=== PATIENT | male | born 1955 ===

== ENCOUNTER 2024-01-28 11:39 | Inpatient (IN) | payer MEDICARE, SELFPAY ==
[2024-01-28] VITALS (20 sets, daily range): BP systolic 117–153; BP diastolic 51–70; PULSE 69–95; RESP 12–38; TEMP 37–38.7; O2SAT 91–100
--- NOTE | ~2024-01-28 | CT_ITS ---
EXAMINATION: CTA brain carotid DATE: 01/28/2024 13:40 INDICATION: Cerebrovascular accident. TECHNIQUE: Computed tomographic angiography (CTA) of the head was performed without and with 100 mL O mnipaque-350 intravenous contrast. CTA of the neck was performed with intravenous contrast. Automated exposure control and iterative reconstruction technique were employed. The dose-length product was 1 792.10 mGy-cm. Maximum intensity projection and volume rendered 3D-reconstructions were created by th e technologist on a separate workstation. COMPARISON: None. FINDINGS: HEAD CTA: There is a large old infarct involving the left frontotemporal parietal region, left insula , left basal ganglia, left internal capsule, and left thalamus. There is an old lacunar infarct in th e right caudate nucleus. There is no intracranial hemorrhage, acute infarction, or abnormal intracran ial mass lesion. The ventricles are normal in size. There is mucosal thickening in the paranasal sinu ses. There is thickening and sclerosis of the sherwood of right sphenoid sinus, consistent with chronic sinusitis. The mastoid air cells are normal. The orbits are normal. Left vertebral artery is dominant . There is associated stenosis of basilar artery or the posterior cerebral arteries. There is no sign ificant stenosis of intracranial internal carotid arteries or anterior cerebral arteries. Orbital cer ebral arteries. Anterior to indicating artery is normal. The posterior communicating arteries are nor mal. There is no aneurysm. NECK CTA: There are nodules in the thyroid measuring up to 11 mm, likely not clinically significant. There is no pathologically enlarged lymph nodes. There is no significant stenosis of the vertebral ar teries. There is a patent stent in left internal carotid artery and common carotid artery. There is p laque in proximal right internal carotid artery. There is 0% stenosis of the proximal right internal carotid artery relative to normal distal artery lumen diameter (NASCET criteria). There is severe cer vical spondylosis. IMPRESSION: 1. Large old infarct in the expected distribution of left middle cerebral artery. 2. Old lacunar infarct in the right caudate nucleus. 3. No aneurysm or significant intracranial arterial stenosis. 4. 0% stenosis of the proximal right internal carotid artery relative to normal distal artery lumen d iameter (NASCET criteria). 5. Patent stent in the left internal carotid artery and common carotid artery. Reviewed, dictated and finalized at location A. IMPRESSION: 1. Large old infarct in the expected distribution of left middle cerebral arter y. 2. Old lacunar infarct in the right caudate nucleus. 3. No aneurysm or significant intracranial arterial stenosis. 4. 0% stenosis of the proximal right internal carotid artery relative to normal distal artery lumen diameter (NASCET criteria). 5. Patent stent in the left internal carotid artery and common carotid artery.
--- NOTE | ~2024-01-28 | XR_ITS ---
EXAMINATION: XR chest 1V portable DATE: 01/28/2024 13:00 INDICATION: Pneumonia. TECHNIQUE: A single frontal view of the chest was obtained. COMPARISON: None. FINDINGS: There is no pneumonia, pleural effusion, or pneumothorax. The heart size is normal. IMPRESSION: 1. No acute cardiopulmonary disease. Reviewed, dictated and finalized at location A.
--- NOTE | ~2024-01-28 | CT_ITS ---
CT abdomen pelvis w con Ordering provider: Alberto Muhammad MD History: 68 years Male with . recent cath, groin hematoma . Comparison: None. Technique: CT abdomen and pelvis with IV and without oral contrast. Automated exposure control and it erative reconstruction technique were employed. The dose-length product was 996.05 mGy-cm. 175 Omnipa que 350 was given IV. Findings: VISUALIZED LOWER CHEST: Atelectatic changes seen in the lung bases posteriorly. Trace of pericardial effusion. UPPER ABDOMINAL ORGANS: Liver: Normal. Gallbladder: Distended with no definite stones. Spleen: Normal. Minimal angulation seen in the area of the spine. Stomach/duodenum: Small sliding hiatus hernia. Pancreas: Normal. Slightly prominent pancreatic duct. Adrenals: Left hypodensity seen measuring 1.7 cm which may indicate myolipoma. Follow-up advised. Kidneys: Cysts seen in the left kidney upper pole measuring 2.4 cm. Right kidney is smaller than the left. Tiny cyst is seen in the upper pole. PELVIC ORGANS: The bladder shows Nuno's catheter in the bladder. Thickened wall of the bladder is se en. Enlarged prostate. BOWEL AND MESENTERY: Colon: No evidence of diverticulitis. Fluid content seen in the large bowel which may indicate an are a. Normal appendix. Small Bowel: Normal. No obstruction. Peritoneum/mesentery: No free air or free fluid. No mesenteric lymphadenopathy. RETROPERITONEUM: Mild atheromatous disease of the abdominal aorta. Abdominal aortic aneurysm with th rombus is seen which measures 3.3 x 3.2 cm. Thrombosis of the proximal left common iliac artery is no redd. Severe narrowing in the right external iliac artery is seen. No retroperitoneal lymphadenopathy. MUSCULOSKELETAL: Superficial soft tissues: Minimal fat stranding is seen in the right groin. No definite hematoma seen . No retroperitoneal hematoma noted. Minimal fat stranding seen around both kidneys. Otherwise, The s uperficial soft tissues are normal. Bones: Age appropriate degenerative changes of the spine. IMPRESSION: 1. Bibasilar atelectasis. Minimal pericardial effusion. 2. Abdominal aortic aneurysm with occlusion of the common left iliac artery. Severe atherosclerotic changes of both iliac artery with narrowing is seen. 3. Loaded in the large bowel which may indicate diarrhea. 4. No definite hematoma seen in both inguinal areas. Minimal fat stranding is seen in the right ingu inal area. Reviewed, dictated and finalized at location A. IMPRESSION: 1. Bibasilar atelectasis. Minimal pericardial effusion. 2. Abdominal aortic aneurysm with occlusion of the common left iliac artery. S evere atherosclerotic changes of both iliac artery with narrowing is seen. 3. Loaded in the large bowel which may indicate diarrhea. 4. No definite hematoma seen in both inguinal areas. Minimal fat stranding is seen in the right inguinal area.
--- NOTE | ~2024-01-28 | XR_ITS ---
XR chest 1V portable 01/31/2024 13:49 Indication: Shortness of breath. Procedure: AP portable chest Comparison: 01/28/2024 Findings: Heart size upper normal. Left basilar airspace disease, consistent with pneumonia No pleura l effusion or pneumothorax. No acute osseous abnormality. Impression: 1: Left basilar airspace disease, consistent with pneumonia. Reviewed, dictated and finalized at location B. Impression: 1: Left basilar airspace disease, consistent with pneumonia.
--- NOTE | 2024-01-28 11:56 | ECG_ITS ---
Test Date: 2024-01-28 11:50:46 Measurements Intervals [place] Rate: 83 P: 40 GA: 175 QRS: -69 QRSD: 120 T: 30 QT: 388 QTc: 458 Interpretive Statements SINUS RHYTHM RIGHT BUNDLE BRANCH BLOCK LEFT ANTERIOR FASCICULAR BLOCK ANTEROLATERAL INFARCT, AGE INDETERMINATE ABNORMAL ECG No previous ECG available for comparison Electronically Signed On 01-28-2024 12:02:02 CDT by Sunil Hogue D.O.
[2024-01-28 12:30] LABS: Basophils Percent Auto 0.1 % (0.2-1.2); Eosinophils Percent Auto 0.1 % (0-4.4); Hematocrit 34.9 % (42.0-52.0); Hemoglobin 11.1 g/dL (14.0-18.0); Immature Granulocyte Absolute 0.05 K/mm3 (0.00-0.031); Immature Granulocyte Percent A 0.5 % (0-0.5); Lymphocytes Absolute Auto 0.88 K/mm3 (0.9-3.2); Lymphocytes Percent Auto 8.6 % (18.3-44.2); Mean Corpuscular HGB Conc 31.8 g/dl (32-36); Mean Corpuscular Hemoglobin 31.1 pg (26-34); Mean Corpuscular Volume 97.8 fl (80-100); Mean Platelet Volume 10.6 fl (7.4-10.4); Monocytes Absolute Auto 0.5 K/mm3 (0.1-0.6); Monocytes Percent Auto 4.4 % (2.6-8.5); Neutrophils Absolute Auto 8.8 K/mm3 (1.3-6.7); Neutrophils Percent Auto 86.3 % (45.5-73.1); Platelet Count Result 202 k/mm3 (150-375); Red Blood Count 3.57 M/mm3 (4.6-6.20); Red Cell Distribution Width 12.6 % (11.5-14.5); White Blood Count 10.2 K/mm3 (4.5-10.0)
[2024-01-28 12:41] LABS: Lactic Acid Reflex 1.5 mmol/L (0.7-2.0); Potassium 5.1 mmol/L (3.4-5.0)
[2024-01-28 12:42] LABS: INR 1.1; Prothrombin Time 14.5 Seconds (11.1-14.7)
[2024-01-28 12:43] LABS: Alanine Aminotransferase 32 U/L (6-50); Albumin Level 3.9 g/dL (3.5-5.1); Alkaline Phosphatase 115 U/L (38-126); Anion Gap 13 mmol/L (4-12); Aspartate Amino Transferase 45 U/L (17-59); Bilirubin,Total 1.1 mg/dL (0.2-1.3); Blood Urea Nitrogen 33 mg/dL (9-20); Calcium 8.9 mg/dL (8.4-10.2); Carbon Dioxide 16 mmol/L (22-30); Chloride 99 mmol/L (98-107); Estimated CRCL calculation 27 ml/min; Estimated Glomerular Filt Rate 25; Glucose 226 mg/dL (65-110); Partial Thromboplastin Time 29.8 Seconds (22.3-36.8); Sodium 128 mmol/L (137-145)
[2024-01-28] MEDS: CEFEPIME 2 GM/NS 50 ML 2 GM/50 ML BAG IVPB (12:57)
[2024-01-28] MEDS: SODIUM CHLORIDE 0.9% IV 2,400 ML/1,000 ML BAG 999 ML IV CONT ×3 (12:57→15:02)
[2024-01-28] MEDS: ACETAMINOPHEN 650 MG SUPPOSITORY RECTAL (12:58)
[2024-01-28 13:23] LABS: Influenza A QL RT-PCR Negative (Negative); Influenza B QL RT-PCR Negative (Negative); SARS-CoV-2 RNA PCR Positive (Negative)
[2024-01-28 13:35] LABS: Bacteria Urine 1+ /hpf; Need Manual Microscopic Reviewed; Non Pathogenic Casts >20; RBC Urine >100 /hpf (0-2); Squamous Epithelial Cell Urine None Seen /hpf (Few); WBC Urine >100 /hpf (0-3)
[2024-01-28 13:36] LABS: Add Urine Microscopic? YES; Appearance Urine Turbid (Clear); Bilirubin Urine 1+ (Negative); Blood Urine 3+ (Negative); Color Urine Dark Yellow (Yellow); Glucose Urine UA Negative (Negative); Ketones Urine Negative (Negative); Leukocyte Esterase Ur 2+ LEU/UL (Negative); Nitrate Urine Negative (Negative); Protein Urine 3+ mg/dL (Negative); Specific Grav Ur 1.022 (1.001-1.035); pH Urine 5.5 (5.0-9.0)
--- NOTE | 2024-01-28 13:47 | ED.AMS ---
HPI - Altered Mental Status General Chief Complaint: Altered Mental Status Stated Complaint: AMS Time Seen by Provider: 01/28/24 12:22 History of Present Illness HPI narrative: 68-year-old male with a past medical history significant for large CVA with residual right-sided hemiparesis, dysarthria. Normally is mental status is alert oriented times 3 but very slow to respond to questions and responds and usual yes or no or sometimes verbalized answers but not able to hand carry on a conversation. Family brings him into the emergency department today from his shelter facility as they knows that he was increasingly lethargic and having decreased mental status. He was at speech therapy this morning and very slow to respond worse than usual. Symptoms have been going on for greater than 2 days according to the family was present at bedside for collateral formation. Patient himself only answers yes or no occasionally during my examination and collateral from family and EMR review was reviewed. Was recently treated for pneumonia apparently at prior admission several weeks ago during his large stroke. He had a stent placed potentially to his carotid arteries and has a right-sided groin hematoma that is slowly resolving. No new traumas, injuries or falls. Related Data Allergies Allergy/AdvReac Type Severity Reaction Status Date / Time No Known Allergies Allergy Verified 01/28/24 12:04 Review of Systems Review of Systems: ROS unobtainable: Yes unobtainable due to medical condition and unobtainable due to mental status Exam Narrative: GENERAL: Chronically ill-appearing, slightly toxic in appearance with tachypneic deep respirations HEAD: [Normocephalic, atraumatic.] EYES: [PERRLA and EOMI.] ENT: Nares clear, no rhinorrhea or epistaxis. Mucous membranes dry. NECK: Supple. CHEST: Coarse breath sounds bilaterally but aside from tachypnea no significant respiratory distress HEART: [Regular rate and rhythm]. No murmur heard. [Normal peripheral pulses.] Right-sided groin hematoma present, warm extremities ABDOMEN: [Soft, nondistended], [nontender], [No rigidity or guarding] EXTREMITIES: Normal range of motion. [No edema.] SKIN: Warm, dry, no rash. NEURO: Alert x1, answering yes or no questions occasionally, right-sided hemiparesis, chronic. Left-sided arms and legs with good strength and mobility, follows commands. Right-sided sensory deficits, chronic PSYCH: Unable to fully assess Course Vital Signs Vital signs: Vital Signs Temperature 38.7 C H 01/28/24 11:41 Pulse Rate 91 01/28/24 11:41 Respiratory Rate 35 H 01/28/24 11:41 Blood Pressure 121/59 L 01/28/24 11:41 Pulse Oximetry 97 01/28/24 11:41 Oxygen Delivery Room Air 01/28/24 11:41 Temperature 37.0 C 01/28/24 17:15 Pulse Rate 70 01/28/24 17:15 Respiratory Rate 20 01/28/24 17:15 Blood Pressure 144/62 H 01/28/24 17:15 Pulse Oximetry 99 01/28/24 17:15 Oxygen Delivery Room Air 01/28/24 13:59 MDM - Altered Mental Status MDM Narrative Medical decision making narrative: 68-year-old male with history of large stroke with residual right-sided hemiparesis and speech deficits. He has no patellar x3 and able to answer questions but not carry on a conversation. Presently he presents today with 2 days worsening mental status, fever, tachypnea. He was recently admitted to the hospital where the diagnosis large stroke at [facility]. He had some kind of catheterization procedure and was told that he had a stent placed into his neck by the family members who provide me collateral formation. No EMR review from that visit is available. For 2 days he has been more lethargic and slow to respond worse than his baseline. No new focal deficits are appreciated, chronic right-sided deficits appreciated examination. Follows commands easily in the left side. He is febrile 38.7 repeatedly here. 97% room air, not tachycardic with normal bloo
[2024-01-28] MEDS: VANCOMYCIN 2,000 MG/NS 500 ML 2,000 MG/500 ML BAG 250 MG IVPB (13:48)
[2024-01-28 14:02] LABS: Fractional Inspired Oxygen 21 %; HCO3 VBG 16.8 mEq/l (24.0-30.0); PO2 VBG 33.2 mmHg (35.0-45.0); pH VBG 7.373 (7.300-7.400)
[2024-01-28 14:03] LABS: PCO2 VBG 29.6 mmHg (42.0-48.0)
[2024-01-28 15:17] LABS: MRSA (PCR) NOT DETECTED (NOT DETECTE)
--- NOTE | 2024-01-28 19:40 | PM.IMHP ---
H&P: HPI History of Present Illness Date/Time: 01/28/24 19:40 Chief Complaint: Lethargy and confusion. Narrative: This is a 68-year-old male with multiple medical problems including of recent stroke with right-sided deficits, peripheral vascular disease, hypertension, dyslipidemia, chronic kidney disease stage 4, iron deficiency anemia, and insulin-dependent type 2 diabetes mellitus who presented to the emergency department via EMS from [facility] for evaluation of lethargy and confusion. He is not able to provide an accurate history given his confusion and a majority of the following is obtained via a review of his EMR as well as information provided by his family members. He is currently at [facility] for rehab after suffering a stroke. This morning the speech therapist noted that he was much slower to respond and did not participate as usual. His last known normal was before going to bed last night. No other information was relayed to us from the transferring facility. At the time my evaluation the patient is alert to self and he is aware that he is at a hospital. Overall he does not feel well but he is unable to provide specifics. He has had uncontrollable diarrhea which the patient states is a newer development. He denies headache, sinus congestion, sore throat, chest pain, shortness of breath, abdominal pain, nausea, vomiting, and dysuria. He does not believe he the on antibiotics recently and denies history of C diff. There have been no reports of falls or documented fever. In the ED: Temperature was 101.7? on arrival. Blood pressures have been stable. He has been tachypneic in the mid 30s. Labs are significant for WBC count of 10.2, hemoglobin 11.1, sodium 128, potassium 5.1, carbon dioxide 16, anion gap 13, BUN 33, creatinine 2.60, glucose 226, lactic acid 1.5. Urinalysis was positive for 3+ protein, 3+ blood, 1+ bilirubin, 2+ leukocyte esterase, greater than 100 RBC and WBC, and 1+ bacteria. He tested positive for SARS-CoV-2 by PCR. CTA of the head and neck showed no aneurysm or significant intracranial arterial stenosis, 0% stenosis of the proximal right internal carotid artery, and patent stents in the left internal carotid artery and common carotid artery. CT of the abdomen pelvis showed by basilar atelectasis, minimal pericardial effusion, fluid content in the large bowel which may indicate diarrhea, abdominal aortic aneurysm with occlusion of the common left iliac artery and severe atherosclerotic changes of both iliac artery with narrowing. The patient's leg is warm and well-perfused and the ED physician spoke with vascular surgery at [facility] who indicated that this was a chronic finding. He was given a normal saline bolus and started on cefepime and vancomycin is being admitted in this setting for further treatment. Review of Systems Review of Systems: Unable to obtain accurately given his clinical condition. [facility] Past Medical History Medical History (Updated 01/28/24 @ 22:50 by Lisa Romo PA-C) Cerebrovascular accident involving left middle cerebral artery territory Chronic kidney disease, stage 4 (severe) Dyslipidemia Hypertension Insulin dependent type 2 diabetes mellitus Iron deficiency anemia Peripheral vascular disease Surgical History Surgical History (Updated 01/28/24 @ 19:52 by Lisa Romo PA-C) History of left common carotid artery stent placement Family History Family History Sibling Cerebrovascular accident Social History Social History (Updated 01/28/24 @ 22:51 by Lisa Romo PA-C) Social History: Surrogate medical decision maker: Chelsey Gurrolaires, spouse. Code status: Do not resuscitate. Smoking packs per day: 2 Smoking cigarettes per day: 40.0 Years smoked: 50 Smoking pack-years: 100.00 Smoking status: Unknown if ever smoked Tobacco type: cigarettes Alcohol intake: unknown S
--- NOTE | 2024-01-28 20:50 | ADMGEN ---
This patient, Monty Badillo, was admitted to [facility] Surg Room 333-01. Patient/family oriented to hospital policies and general routines including ID bracelet, bed and alarms, visiting hours, pain management, procedures, bathroom and other care routines, personal items, smoking policy, room service/diet, and visiting hours. Information on how to activate the Rapid Response Team has been discussed. Patient/Family are encouraged to report perceived risks to care and to ask questions if they do not understand what they are told or what they should do.
[2024-01-28 21:40] LABS: Ammonia < 9 umol/L (9-30); Anion Gap 7 mmol/L (4-12); Blood Urea Nitrogen 29 mg/dL (9-20); CRP 18.3 mg/dL (<1.0); Calcium 7.9 mg/dL (8.4-10.2); Carbon Dioxide 13 mmol/L (22-30); Chloride 107 mmol/L (98-107); Estimated CRCL calculation 33 ml/min; Estimated Glomerular Filt Rate 32; Glucose 126 mg/dL (65-110); Lactate Dehydrogenase 240 U/L (120-246); Potassium 4.3 mmol/L (3.4-5.0); Sodium 127 mmol/L (137-145)
[2024-01-28] MEDS: REMDESIVIR 200 MG/NS 250 ML 200 MG/250 ML BAG 250 MG IVPB (21:45)
[2024-01-28 22:30] LABS: IFOB Positive Control Positive
[2024-01-28 22:32] LABS: Immunochemical Fecal Occult Bl Negative (N)
[2024-01-28 22:50] LABS: Procalcitonin 0.3 ng/mL; Thyroid Stimulating Hormone Reflex 0.649 uIU/mL (0.465-4.68)
[2024-01-28 23:10] LABS: Toxigenic C. Diff POSITIVE (NEGATIVE)
[2024-01-28] MEDS: carvediloL 6.25 MG TABLET PO (23:36)
[2024-01-28] MEDS: PREGABALIN (*CRX) 25 MG CAPSULE PO (23:36)
[2024-01-28] MEDS: cloNIDine HCL 0.1 MG TABLET 0.3 MG PO (23:36)
[2024-01-28] MEDS: TICAGRELOR 90 MG TABLET PO (23:36)
[2024-01-28] MEDS: DOXAZOSIN MESYLATE 4 MG TABLET PO (23:36)
[2024-01-28] MEDS: SODIUM CHLORIDE 0.9% IV 1,000 ML 100 ML IV CONT (23:40)
[2024-01-29] VITALS (9 sets, daily range): BP systolic 146–174; BP diastolic 43–68; PULSE 74–100; RESP 18–20; TEMP 37.1–37.7; O2SAT 94–100; BMI 24.3
[2024-01-29] MEDS: metroNIDAZOLE 500 MG/ISO 100ML 500 MG/100 ML BAG 100 MG IVPB ×4 (00:35→22:10)
[2024-01-29] MEDS: FIDAXOMICIN 200 MG TABLET PO ×2 (00:37→09:09)
[2024-01-29 00:45] LABS: Glucose Point of Care 120 mg/dl (65-105)
[2024-01-29 03:00] LABS: Anion Gap 13 mmol/L (4-12); Blood Urea Nitrogen 27 mg/dL (9-20); Calcium 8.3 mg/dL (8.4-10.2); Carbon Dioxide 12 mmol/L (22-30); Chloride 112 mmol/L (98-107); Estimated CRCL calculation 33 ml/min; Estimated Glomerular Filt Rate 32; Glucose 111 mg/dL (65-110); Potassium 4.8 mmol/L (3.4-5.0); Sodium 137 mmol/L (137-145)
[2024-01-29 07:03] LABS: Basophils Percent Auto 0.2 % (0.2-1.2); Eosinophils Percent Auto 0.2 % (0-4.4); Hematocrit 28.2 % (42.0-52.0); Hemoglobin 8.7 g/dL (14.0-18.0); Immature Granulocyte Absolute 0.08 K/mm3 (0.00-0.031); Immature Granulocyte Percent A 0.6 % (0-0.5); Lymphocytes Percent Auto 9.5 % (18.3-44.2); Mean Corpuscular HGB Conc 30.9 g/dl (32-36); Mean Corpuscular Volume 100.4 fl (80-100); Mean Platelet Volume 10.3 fl (7.4-10.4); Monocytes Absolute Auto 0.8 K/mm3 (0.1-0.6); Monocytes Percent Auto 6.2 % (2.6-8.5); Neutrophils Absolute Auto 10.6 K/mm3 (1.3-6.7); Neutrophils Percent Auto 83.3 % (45.5-73.1); Platelet Count Result 185 k/mm3 (150-375); Red Blood Count 2.81 M/mm3 (4.6-6.20); Red Cell Distribution Width 12.9 % (11.5-14.5); White Blood Count 12.7 K/mm3 (4.5-10.0)
[2024-01-29 07:27] LABS: Chloride 102 mmol/L (98-107)
[2024-01-29 07:29] LABS: Alanine Aminotransferase 25 U/L (6-50); Albumin Level 2.8 g/dL (3.5-5.1); Alkaline Phosphatase 90 U/L (38-126); Anion Gap 14 mmol/L (4-12); Aspartate Amino Transferase 39 U/L (17-59); Bilirubin,Total 0.5 mg/dL (0.2-1.3); Blood Urea Nitrogen 27 mg/dL (9-20); Calcium 8.3 mg/dL (8.4-10.2); Carbon Dioxide 15 mmol/L (22-30); Estimated CRCL calculation 33 ml/min; Estimated Glomerular Filt Rate 32; Glucose 97 mg/dL (65-110); Potassium 4.3 mmol/L (3.4-5.0); Sodium 131 mmol/L (137-145)
[2024-01-29 07:40] LABS: Glucose Point of Care 109 mg/dl (65-105)
[2024-01-29] MEDS: carvediloL 6.25 MG TABLET PO ×2 (09:09→21:15)
[2024-01-29] MEDS: FERROUS SULFATE 325 MG TABLET DR PO ×4 (09:09→21:15)
[2024-01-29] MEDS: cloNIDine HCL 0.1 MG TABLET 0.3 MG PO ×2 (09:09→21:14)
[2024-01-29] MEDS: EZETIMIBE 10 MG TABLET PO (09:09)
[2024-01-29] MEDS: CHOLECALCIFEROL 1,000 UNITS TABLET 1000 UNITS PO (09:09)
[2024-01-29] MEDS: ASPIRIN 81 MG CHEWABLE TABLET PO (09:10)
[2024-01-29] MEDS: amLODIPine BESYLATE 10 MG TABLET PO (09:10)
[2024-01-29] MEDS: TICAGRELOR 90 MG TABLET PO ×2 (09:10→21:14)
[2024-01-29] MEDS: PREGABALIN (*CRX) 25 MG CAPSULE PO ×2 (09:10→18:06)
[2024-01-29] MEDS: calcitrioL 0.25 MCG CAPSULE PO (09:11)
[2024-01-29 11:28] LABS: Glucose Point of Care 118 mg/dl (65-105)
[2024-01-29] MEDS: SODIUM CHLORIDE 0.9% IV 1,000 ML 100 ML IV CONT (15:20)
[2024-01-29 16:56] LABS: Glucose Point of Care 134 mg/dl (65-105)
[2024-01-29] MEDS: VANCOMYCIN HCL 125 MG ORAL CAPSULE PO (18:07)
--- NOTE | 2024-01-29 18:09 | PM.IMPN ---
Progress Note: A&P Assessment and Plan (1) Sepsis: Code(s): A41.9 - Sepsis, unspecified organism Status: Acute (2) Urinary tract infection: Code(s): N39.0 - Urinary tract infection, site not specified Status: Acute (3) COVID-19: Code(s): U07.1 - COVID-19 Status: Acute (4) Abdominal aortic aneurysm: Code(s): I71.40 - Abdominal aortic aneurysm, without rupture, unspecified Status: Acute (5) Electrolyte abnormality: Code(s): E87.8 - Other disorders of electrolyte and fluid balance, not elsewhere classified Status: Acute (6) Occlusion of left iliac artery: Code(s): I74.5 - Embolism and thrombosis of iliac artery Status: Acute (7) Altered mental status: Code(s): R41.82 - Altered mental status, unspecified Status: Acute (8) Insulin dependent type 2 diabetes mellitus: Code(s): E11.9 - Type 2 diabetes mellitus without complications; Z79.4 - [facility] (current) use of insulin Status: Acute (9) Hypertension: Code(s): I10 - Essential (primary) hypertension Status: Acute (10) Chronic kidney disease, stage 4 (severe): Code(s): N18.4 - Chronic kidney disease, stage 4 (severe) Status: Acute (11) Dyslipidemia: Code(s): E78.5 - Hyperlipidemia, unspecified Status: Acute Plan The patient presented to the emergency department for evaluation of lethargy and altered mental status as detailed in HPI. Labs, imaging, EKG, and all reports were personally reviewed. he seems much more alert and oriented at the time my evaluation. He meets sepsis criteria with fever, leukocytosis, and altered mental status in the setting of infection. Blood pressures have been stable and lactic acid level is within normal limits. Urine, blood, and stool studies have been ordered and are pending. I suspect his lethargy and confusion are related to underlying COVID and probable urinary tract infection. He also looks quite dry on exam and has some electrolyte abnormalities. He has been started on remdesivir as he is at higher risk for developing severe COVID. No indication for dexamethasone at this time as he has no oxygen requirement. Urinalysis is concerning for UTI and he has been started on ceftriaxone, pending urine culture. Blood cultures have also been obtained and are pending. He has profound diarrhea and stool will be sent for C diff and stool culture. Continue IV fluids to keep up with volume loss. Add Flagyl for now pending. Repeat BMP is pending to ensure improvement in mild hyperkalemia. Records requested from [facility] in [place] to help establish baseline labs. 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 His leg is warm and perfused without signs of ischemia. Blood pressures were reviewed and they have been stable. Continue basal insulin and initiate sliding scale insulin, Accu-Cheks, and hypoglycemic protocol. His medications will be reviewed and resumed as appropriate. Findings and treatment plan were discussed with the patient. Questions were solicited and answered to satisfaction. The patient's medical management will be taken over by the hospitalist team in a.m. Patient is positive for C-diff and was started fidaxomicin and rectal tube was place for fecal management, patient is also positive for COVID and he clinically stable not requiring any oxygen patient is started on remdesivir with does not need dexamethasone, patient is unable to provide detailed review of symptoms or history, patient is clinically stable his is present in the room and will continue to monitor and further recommendation to follow Subjective Date/time seen: 01/29/24 18:09 Interval history: Lethargy and confusion. [id number]: This is a 68-year-old male with multiple medical problems including of recent stroke with right-sided deficits, ector
[2024-01-29 20:25] LABS: Glucose Point of Care 136 mg/dl (65-105)
[2024-01-29] MEDS: DOXAZOSIN MESYLATE 4 MG TABLET PO (21:14)
[2024-01-29] MEDS: ATORVASTATIN 40 MG TABLET PO (21:15)
[2024-01-29] MEDS: INSULIN GLARGINE (*BKC) 100 UNITS/ML 20 UNITS SUB-Q (21:29)
[2024-01-29] MEDS: REMDESIVIR 100 MG/NS 250 ML 100 MG/250 ML BAG 250 MG IVPB (23:22)
[2024-01-30] VITALS (11 sets, daily range): BP systolic 146–170; BP diastolic 50–61; PULSE 79–105; RESP 14–20; TEMP 36.2–36.8; O2SAT 92–100
[2024-01-30] MEDS: VANCOMYCIN HCL 125 MG ORAL CAPSULE PO ×5 (00:26→23:27)
[2024-01-30] MEDS: metroNIDAZOLE 500 MG/ISO 100ML 500 MG/100 ML BAG 100 MG IVPB (05:57)
[2024-01-30] MEDS: carvediloL 6.25 MG TABLET PO ×2 (08:06→21:03)
[2024-01-30] MEDS: amLODIPine BESYLATE 10 MG TABLET PO (08:06)
[2024-01-30] MEDS: ASPIRIN 81 MG CHEWABLE TABLET PO (08:06)
[2024-01-30] MEDS: TICAGRELOR 90 MG TABLET PO ×2 (08:07→21:02)
[2024-01-30] MEDS: FERROUS SULFATE 325 MG TABLET DR PO ×4 (08:07→21:02)
[2024-01-30] MEDS: EZETIMIBE 10 MG TABLET PO (08:07)
[2024-01-30] MEDS: CHOLECALCIFEROL 1,000 UNITS TABLET 1000 UNITS PO (08:07)
[2024-01-30] MEDS: cloNIDine HCL 0.1 MG TABLET 0.3 MG PO ×2 (08:07→21:02)
[2024-01-30] MEDS: PREGABALIN (*CRX) 25 MG CAPSULE PO ×2 (08:07→17:03)
[2024-01-30 08:30] LABS: Glucose Point of Care 133 mg/dl (65-105)
[2024-01-30 09:18] LABS: INR 1.3; Prothrombin Time 16.5 Seconds (11.1-14.7)
[2024-01-30 09:22] LABS: Alanine Aminotransferase 36 U/L (6-50); Albumin Level 2.6 g/dL (3.5-5.1); Alkaline Phosphatase 93 U/L (38-126); Anion Gap 12 mmol/L (4-12); Aspartate Amino Transferase 105 U/L (17-59); Bilirubin,Total 0.5 mg/dL (0.2-1.3); Blood Urea Nitrogen 32 mg/dL (9-20); Calcium 8.3 mg/dL (8.4-10.2); Carbon Dioxide 11 mmol/L (22-30); Chloride 117 mmol/L (98-107); Estimated CRCL calculation 35 ml/min; Estimated Glomerular Filt Rate 33; Glucose 161 mg/dL (65-110); Magnesium 1.9 mg/dL (1.6-2.3); Potassium 3.7 mmol/L (3.4-5.0); Sodium 140 mmol/L (137-145)
[2024-01-30 09:31] LABS: Iron 16 ug/dL (49-181)
[2024-01-30 09:42] LABS: Percent Iron Saturation 10 % (20-50)
--- NOTE | 2024-01-30 10:26 | PCPTNOTE ---
attempted PT eval, per OT pt is not oriented or participating in therapy/mobility, will follow
--- NOTE | 2024-01-30 10:32 | PCNFU ---
Nutrition Follow-Up Complete: Inadequate oral intake related to loss of appetite as evidenced by 0% intakes Goal:Improve PO intake to at least 50% meals and supplements Pt not meeting goal, continue with same goal Pt current nutrition is Pureed, diabetic, moderately thickened liquids. Glucerna shakes BID. Nutrition recommendation: Add HAM BID for wound Last recorded weight is 80.6 kg. Bowel Motility:no BM recorded at this time Labs Reviewed: GFR:33, BUN:32, Cr:2.0, Glu:133 Meds Noted: lantus, novolog Skin: Stage I to hip Additional Notes: Pt continues on same modified diet, intake poor. Recommend to add HAM for new wound. Will monitor. Monitoring intakes, weights, labs, supplement tolerance, plan of care Follow up in 3 days
[2024-01-30 11:33] LABS: Glucose Point of Care 167 mg/dl (65-105)
[2024-01-30] MEDS: SULFAMETHOXAZOLE/TRIMETHOPRIM 800/160 MG DS TABLET 1 TAB PO ×2 (14:58→23:27)
[2024-01-30] MEDS: SODIUM CHLORIDE 0.9% IV 1,000 ML 100 ML IV CONT (14:58)
[2024-01-30 16:26] LABS: Glucose Point of Care 178 mg/dl (65-105)
--- NOTE | 2024-01-30 17:46 | PM.IMPN ---
Progress Note: A&P Assessment and Plan (1) Sepsis: Code(s): A41.9 - Sepsis, unspecified organism Status: Acute (2) Urinary tract infection: Code(s): N39.0 - Urinary tract infection, site not specified Status: Acute (3) COVID-19: Code(s): U07.1 - COVID-19 Status: Acute (4) Abdominal aortic aneurysm: Code(s): I71.40 - Abdominal aortic aneurysm, without rupture, unspecified Status: Acute (5) Electrolyte abnormality: Code(s): E87.8 - Other disorders of electrolyte and fluid balance, not elsewhere classified Status: Acute (6) Occlusion of left iliac artery: Code(s): I74.5 - Embolism and thrombosis of iliac artery Status: Acute (7) Altered mental status: Code(s): R41.82 - Altered mental status, unspecified Status: Acute (8) Insulin dependent type 2 diabetes mellitus: Code(s): E11.9 - Type 2 diabetes mellitus without complications; Z79.4 - prison (current) use of insulin Status: Acute (9) Hypertension: Code(s): I10 - Essential (primary) hypertension Status: Acute (10) Chronic kidney disease, stage 4 (severe): Code(s): N18.4 - Chronic kidney disease, stage 4 (severe) Status: Acute (11) Dyslipidemia: Code(s): E78.5 - Hyperlipidemia, unspecified Status: Acute Plan The patient presented to the emergency department for evaluation of lethargy and altered mental status as detailed in HPI. Labs, imaging, EKG, and all reports were personally reviewed. he seems much more alert and oriented at the time my evaluation. He meets sepsis criteria with fever, leukocytosis, and altered mental status in the setting of infection. Blood pressures have been stable and lactic acid level is within normal limits. Urine, blood, and stool studies have been ordered and are pending. I suspect his lethargy and confusion are related to underlying COVID and probable urinary tract infection. He also looks quite dry on exam and has some electrolyte abnormalities. He has been started on remdesivir as he is at higher risk for developing severe COVID. No indication for dexamethasone at this time as he has no oxygen requirement. Urinalysis is concerning for UTI and he has been started on ceftriaxone, pending urine culture. Blood cultures have also been obtained and are pending. He has profound diarrhea and stool will be sent for C diff and stool culture. Continue IV fluids to keep up with volume loss. Add Flagyl for now pending. Repeat BMP is pending to ensure improvement in mild hyperkalemia. Records requested from [facility] in [place] to help establish baseline labs. 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 His leg is warm and perfused without signs of ischemia. Blood pressures were reviewed and they have been stable. Continue basal insulin and initiate sliding scale insulin, Accu-Cheks, and hypoglycemic protocol. His medications will be reviewed and resumed as appropriate. Findings and treatment plan were discussed with the patient. Questions were solicited and answered to satisfaction. The patient's medical management will be taken over by the hospitalist team in a.m. Patient is positive for C-diff and was started fidaxomicin and rectal tube was place for fecal management, will stop fidaxomicin due to cost in anticipation for transfer to rehab and start patient of oral vancomycin, patient is also positive for COVID and he clinically stable not requiring any oxygen patient is started on remdesivir, does not need dexamethasone, patient is unable to provide detailed review of symptoms or history, patient is clinically stable his is present in the room and will continue to monitor and further recommendation to follow. Plan is to have PT OT evaluate the patient and may possibly transfer the patient back to rehab. Subjective Date/time s
[2024-01-30 19:58] LABS: Glucose Point of Care 175 mg/dl (65-105)
[2024-01-30] MEDS: ATORVASTATIN 40 MG TABLET PO (21:02)
[2024-01-30] MEDS: INSULIN GLARGINE (*BKC) 100 UNITS/ML 20 UNITS SUB-Q (21:03)
[2024-01-30] MEDS: DOXAZOSIN MESYLATE 4 MG TABLET PO (21:03)
[2024-01-30] MEDS: REMDESIVIR 100 MG/NS 250 ML 100 MG/250 ML BAG 250 MG IVPB (21:06)
[2024-01-31] VITALS (11 sets, daily range): BP systolic 144–153; BP diastolic 57–69; PULSE 78–97; RESP 17–18; TEMP 36.6–37.1; O2SAT 99–100
--- NOTE | 2024-01-31 05:35 | PC.NURSE ---
James noted on telemetry, provider notified. No new orders.
[2024-01-31] MEDS: SODIUM CHLORIDE 0.9% IV 1,000 ML 100 ML IV CONT (06:06)
[2024-01-31] MEDS: VANCOMYCIN HCL 125 MG ORAL CAPSULE PO ×4 (06:07→23:53)
[2024-01-31 06:38] LABS: Anion Gap 9 mmol/L (4-12); Blood Urea Nitrogen 33 mg/dL (9-20); Calcium 8.4 mg/dL (8.4-10.2); Carbon Dioxide 11 mmol/L (22-30); Chloride 121 mmol/L (98-107); Estimated CRCL calculation 32 ml/min; Estimated Glomerular Filt Rate 30; Glucose 115 mg/dL (65-110); Potassium 3.7 mmol/L (3.4-5.0); Sodium 141 mmol/L (137-145)
[2024-01-31] MEDS: amLODIPine BESYLATE 10 MG TABLET PO (07:44)
[2024-01-31] MEDS: CHOLECALCIFEROL 1,000 UNITS TABLET 1000 UNITS PO (07:44)
[2024-01-31] MEDS: carvediloL 6.25 MG TABLET PO ×2 (07:44→20:58)
[2024-01-31] MEDS: ASPIRIN 81 MG CHEWABLE TABLET PO (07:44)
[2024-01-31] MEDS: cloNIDine HCL 0.1 MG TABLET 0.3 MG PO ×2 (07:44→20:58)
[2024-01-31] MEDS: SULFAMETHOXAZOLE/TRIMETHOPRIM 800/160 MG DS TABLET 1 TAB PO ×2 (07:45→20:58)
[2024-01-31] MEDS: TICAGRELOR 90 MG TABLET PO ×2 (07:45→20:58)
[2024-01-31] MEDS: FERROUS SULFATE 325 MG TABLET DR PO ×4 (07:45→20:58)
[2024-01-31] MEDS: PREGABALIN (*CRX) 25 MG CAPSULE PO ×2 (07:45→17:08)
[2024-01-31] MEDS: EZETIMIBE 10 MG TABLET PO (07:45)
[2024-01-31] MEDS: calcitrioL 0.25 MCG CAPSULE PO (08:05)
[2024-01-31 08:18] LABS: Glucose Point of Care 134 mg/dl (65-105)
[2024-01-31 08:27] LABS: Hematocrit 28.4 % (42.0-52.0); Hemoglobin 8.9 g/dL (14.0-18.0); Mean Corpuscular HGB Conc 31.3 g/dl (32-36); Mean Corpuscular Hemoglobin 30.7 pg (26-34); Mean Corpuscular Volume 97.9 fl (80-100); Mean Platelet Volume 10.6 fl (7.4-10.4); Platelet Count Result 230 k/mm3 (150-375); Red Cell Distribution Width 13.3 % (11.5-14.5); White Blood Count 11.4 K/mm3 (4.5-10.0)
[2024-01-31 11:50] LABS: Glucose Point of Care 224 mg/dl (65-105)
[2024-01-31] MEDS: INSULIN ASPART (*BKC) 100 UNITS/ML SUB-Q (11:59)
--- NOTE | 2024-01-31 14:00 | PM.IMPN ---
Progress Note: A&P Assessment and Plan (1) Sepsis: Code(s): A41.9 - Sepsis, unspecified organism Status: Acute (2) Urinary tract infection: Code(s): N39.0 - Urinary tract infection, site not specified Status: Acute (3) COVID-19: Code(s): U07.1 - COVID-19 Status: Acute (4) Abdominal aortic aneurysm: Code(s): I71.40 - Abdominal aortic aneurysm, without rupture, unspecified Status: Acute (5) Electrolyte abnormality: Code(s): E87.8 - Other disorders of electrolyte and fluid balance, not elsewhere classified Status: Acute (6) Occlusion of left iliac artery: Code(s): I74.5 - Embolism and thrombosis of iliac artery Status: Acute (7) Altered mental status: Code(s): R41.82 - Altered mental status, unspecified Status: Acute (8) Insulin dependent type 2 diabetes mellitus: Code(s): E11.9 - Type 2 diabetes mellitus without complications; Z79.4 - [facility] (current) use of insulin Status: Acute (9) Hypertension: Code(s): I10 - Essential (primary) hypertension Status: Acute (10) Chronic kidney disease, stage 4 (severe): Code(s): N18.4 - Chronic kidney disease, stage 4 (severe) Status: Acute (11) Dyslipidemia: Code(s): E78.5 - Hyperlipidemia, unspecified Status: Acute Plan Patient is positive for C-diff and was started fidaxomicin and rectal tube was place for fecal management, will stop fidaxomicin due to cost in anticipation for transfer to rehab and start patient of oral vancomycin, patient is also positive for COVID and he clinically stable not requiring any oxygen patient is started on remdesivir, does not need dexamethasone, patient is unable to provide detailed review of symptoms or history, patient is clinically stable, patient Scr is rising most likely 2/2 to dehydration due to diarrhea and poor PO inatake, started on IVF 125cc per hour, but lungs congested will reduce to 75cc/hr, will do cxr and monitor, will continue to monitor and further recommendation to follow. Plan is to have PT OT evaluate the patient and may possibly transfer the patient back to rehab. Subjective Date/time seen: 01/31/24 14:00 Interval history: Lethargy and confusion. [id number]: This is a 68-year-old male with multiple medical problems including of recent stroke with right-sided deficits, peripheral vascular disease, hypertension, dyslipidemia, chronic kidney disease stage 4, iron deficiency anemia, and insulin-dependent type 2 diabetes mellitus who presented to the emergency department via EMS from [facility] for evaluation of lethargy and confusion. He is not able to provide an accurate history given his confusion and a majority of the following is obtained via a review of his EMR as well as information provided by his family members. He is currently at [facility] for rehab after suffering a stroke. This morning the speech therapist noted that he was much slower to respond and did not participate as usual. His last known normal was before going to bed last night. No other information was relayed to us from the transferring facility. At the time my evaluation the patient is alert to self and he is aware that he is at a hospital. Overall he does not feel well but he is unable to provide specifics. He has had uncontrollable diarrhea which the patient states is a newer development. He denies headache, sinus congestion, sore throat, chest pain, shortness of breath, abdominal pain, nausea, vomiting, and dysuria. He does not believe he the on antibiotics recently and denies history of C diff. There have been no reports of falls or documented fever. In the ED: Temperature was 101.7? on arrival. Blood pressures have been stable. He has been tachypneic in the mid 30s. Labs are significant for WBC count of 10.2, hemoglobin 11.1, sodium 128, potassium 5.1, carbon dioxide 16, anion gap 13, BUN 33, creatinine 2.60, glu
[2024-01-31] MEDS: SODIUM CHLORIDE 0.9% IV 1,000 ML 75 ML IV CONT (16:06)
[2024-01-31 16:58] LABS: Glucose Point of Care 128 mg/dl (65-105)
[2024-01-31 20:09] LABS: Glucose Point of Care 126 mg/dl (65-105)
[2024-01-31] MEDS: DOXAZOSIN MESYLATE 4 MG TABLET PO (20:58)
[2024-01-31] MEDS: ATORVASTATIN 40 MG TABLET PO (20:58)
[2024-01-31] MEDS: INSULIN GLARGINE (*BKC) 100 UNITS/ML 20 UNITS SUB-Q (20:59)
[2024-01-31] MEDS: REMDESIVIR 100 MG/NS 250 ML 100 MG/250 ML BAG 250 MG IVPB (22:15)
[2024-02-01] VITALS (10 sets, daily range): BP systolic 134–154; BP diastolic 56–63; PULSE 59–84; RESP 17–22; TEMP 35.9–36.9; O2SAT 100
[2024-02-01] MEDS: SODIUM CHLORIDE 0.9% IV 1,000 ML 75 ML IV CONT ×2 (05:53→22:02)
[2024-02-01] MEDS: VANCOMYCIN HCL 125 MG ORAL CAPSULE PO ×3 (05:53→18:26)
[2024-02-01 07:21] LABS: Hemoglobin 7.4 g/dL (14.0-18.0); Mean Corpuscular HGB Conc 30.8 g/dl (32-36); Mean Corpuscular Hemoglobin 30.6 pg (26-34); Mean Corpuscular Volume 99.2 fl (80-100); Platelet Count Result 215 k/mm3 (150-375); Red Blood Count 2.42 M/mm3 (4.6-6.20); Red Cell Distribution Width 13.3 % (11.5-14.5); White Blood Count 10.1 K/mm3 (4.5-10.0)
[2024-02-01 07:31] LABS: Alanine Aminotransferase 30 U/L (6-50); Albumin Level 2.2 g/dL (3.5-5.1); Alkaline Phosphatase 73 U/L (38-126); Anion Gap 11 mmol/L (4-12); Aspartate Amino Transferase 58 U/L (17-59); Bilirubin,Total 0.3 mg/dL (0.2-1.3); Blood Urea Nitrogen 34 mg/dL (9-20); Calcium 7.7 mg/dL (8.4-10.2); Carbon Dioxide 11 mmol/L (22-30); Chloride 120 mmol/L (98-107); Estimated CRCL calculation 32 ml/min; Estimated Glomerular Filt Rate 30; Glucose 85 mg/dL (65-110); Magnesium 2.1 mg/dL (1.6-2.3); Potassium 3.8 mmol/L (3.4-5.0); Sodium 142 mmol/L (137-145)
[2024-02-01 07:32] LABS: INR 1.3; Prothrombin Time 16.6 Seconds (11.1-14.7)
[2024-02-01 07:59] LABS: Glucose Point of Care 85 mg/dl (65-105)
[2024-02-01] MEDS: carvediloL 6.25 MG TABLET PO ×2 (10:21→21:50)
[2024-02-01] MEDS: SULFAMETHOXAZOLE/TRIMETHOPRIM 800/160 MG DS TABLET 1 TAB PO ×2 (10:22→21:50)
[2024-02-01] MEDS: EZETIMIBE 10 MG TABLET PO (10:22)
[2024-02-01] MEDS: TICAGRELOR 90 MG TABLET PO ×2 (10:22→21:50)
[2024-02-01] MEDS: amLODIPine BESYLATE 10 MG TABLET PO (10:22)
[2024-02-01] MEDS: PREGABALIN (*CRX) 25 MG CAPSULE PO ×2 (10:22→18:26)
[2024-02-01] MEDS: CHOLECALCIFEROL 1,000 UNITS TABLET 1000 UNITS PO (10:22)
[2024-02-01] MEDS: cloNIDine HCL 0.1 MG TABLET 0.3 MG PO ×2 (10:22→21:50)
[2024-02-01] MEDS: ASPIRIN 81 MG CHEWABLE TABLET PO (10:22)
[2024-02-01] MEDS: FERROUS SULFATE 325 MG TABLET DR PO ×4 (10:23→21:50)
[2024-02-01 11:49] LABS: Glucose Point of Care 102 mg/dl (65-105)
--- NOTE | 2024-02-01 16:35 | PM.IMPN ---
Progress Note: A&P Assessment and Plan (1) Sepsis: Code(s): A41.9 - Sepsis, unspecified organism Status: Acute (2) Urinary tract infection: Code(s): N39.0 - Urinary tract infection, site not specified Status: Acute (3) COVID-19: Code(s): U07.1 - COVID-19 Status: Acute (4) Abdominal aortic aneurysm: Code(s): I71.40 - Abdominal aortic aneurysm, without rupture, unspecified Status: Acute (5) Electrolyte abnormality: Code(s): E87.8 - Other disorders of electrolyte and fluid balance, not elsewhere classified Status: Acute (6) Occlusion of left iliac artery: Code(s): I74.5 - Embolism and thrombosis of iliac artery Status: Acute (7) Altered mental status: Code(s): R41.82 - Altered mental status, unspecified Status: Acute (8) Insulin dependent type 2 diabetes mellitus: Code(s): E11.9 - Type 2 diabetes mellitus without complications; Z79.4 - retirement (current) use of insulin Status: Acute (9) Hypertension: Code(s): I10 - Essential (primary) hypertension Status: Acute (10) Chronic kidney disease, stage 4 (severe): Code(s): N18.4 - Chronic kidney disease, stage 4 (severe) Status: Acute (11) Dyslipidemia: Code(s): E78.5 - Hyperlipidemia, unspecified Status: Acute Plan Patient is positive for C-diff and was started fidaxomicin and rectal tube was place for fecal management, will stop fidaxomicin due to cost in anticipation for transfer to rehab and start patient of oral vancomycin, patient is also positive for COVID and he clinically stable not requiring any oxygen patient is started on remdesivir, does not need dexamethasone, patient is unable to provide detailed review of symptoms or history, patient is clinically stable, patient Scr is rising most likely 2/2 to dehydration due to diarrhea and poor PO inatake, started on IVF 125cc per hour, but lungs congested will reduce to 75cc/hr, will do cxr and monitor, will continue to monitor and further recommendation to follow. Plan is to have PT OT evaluate the patient and may possibly transfer the patient back to rehab. Subjective Date/time seen: 02/01/24 16:35 Interval history: Lethargy and confusion. [id number]: This is a 68-year-old male with multiple medical problems including of recent stroke with right-sided deficits, peripheral vascular disease, hypertension, dyslipidemia, chronic kidney disease stage 4, iron deficiency anemia, and insulin-dependent type 2 diabetes mellitus who presented to the emergency department via EMS from [facility] for evaluation of lethargy and confusion. He is not able to provide an accurate history given his confusion and a majority of the following is obtained via a review of his EMR as well as information provided by his family members. He is currently at [facility] for rehab after suffering a stroke. This morning the speech therapist noted that he was much slower to respond and did not participate as usual. His last known normal was before going to bed last night. No other information was relayed to us from the transferring facility. At the time my evaluation the patient is alert to self and he is aware that he is at a hospital. Overall he does not feel well but he is unable to provide specifics. He has had uncontrollable diarrhea which the patient states is a newer development. He denies headache, sinus congestion, sore throat, chest pain, shortness of breath, abdominal pain, nausea, vomiting, and dysuria. He does not believe he the on antibiotics recently and denies history of C diff. There have been no reports of falls or documented fever. In the ED: Temperature was 101.7? on arrival. Blood pressures have been stable. He has been tachypneic in the mid 30s. Labs are significant for WBC count of 10.2, hemoglobin 11.1, sodium 128, potassium 5.1, carbon dioxide 16, anion gap 13, BUN 33, creatinine 2.60, glu
[2024-02-01 16:56] LABS: Glucose Point of Care 89 mg/dl (65-105)
[2024-02-01 18:14] LABS: Norovirus RNA PCR, Stool NOT DETECTED
[2024-02-01 19:47] LABS: Glucose Point of Care 122 mg/dl (65-105)
[2024-02-01] MEDS: INSULIN GLARGINE (*BKC) 100 UNITS/ML 20 UNITS SUB-Q (21:48)
[2024-02-01] MEDS: ATORVASTATIN 40 MG TABLET PO (21:49)
[2024-02-01] MEDS: DOXAZOSIN MESYLATE 4 MG TABLET PO (21:50)
[2024-02-01] MEDS: REMDESIVIR 100 MG/NS 250 ML 100 MG/250 ML BAG 250 MG IVPB (21:51)
[2024-02-02] VITALS (11 sets, daily range): BP systolic 115–136; BP diastolic 49–67; PULSE 58–81; RESP 16–18; TEMP 35.7–36.4; O2SAT 100
[2024-02-02] MEDS: VANCOMYCIN HCL 125 MG ORAL CAPSULE PO ×5 (00:22→23:26)
[2024-02-02 07:18] LABS: Alanine Aminotransferase 27 U/L (6-50); Alkaline Phosphatase 67 U/L (38-126); Anion Gap 8 mmol/L (4-12); Aspartate Amino Transferase 54 U/L (17-59); Bilirubin,Total 0.6 mg/dL (0.2-1.3); Blood Urea Nitrogen 34 mg/dL (9-20); Calcium 7.7 mg/dL (8.4-10.2); Carbon Dioxide 8 mmol/L (22-30); Chloride 121 mmol/L (98-107); Estimated CRCL calculation 37 ml/min; Estimated Glomerular Filt Rate 36; Glucose 76 mg/dL (65-110); Magnesium 2.2 mg/dL (1.6-2.3); Potassium 4.6 mmol/L (3.4-5.0); Sodium 137 mmol/L (137-145)
[2024-02-02 07:27] LABS: Glucose Point of Care 88 mg/dl (65-105)
[2024-02-02] MEDS: PREGABALIN (*CRX) 25 MG CAPSULE PO ×2 (09:10→17:07)
[2024-02-02] MEDS: ASPIRIN 81 MG CHEWABLE TABLET PO (09:10)
[2024-02-02] MEDS: carvediloL 6.25 MG TABLET PO ×2 (09:10→22:02)
[2024-02-02] MEDS: TICAGRELOR 90 MG TABLET PO ×2 (09:11→22:02)
[2024-02-02] MEDS: FERROUS SULFATE 325 MG TABLET DR PO ×4 (09:11→22:02)
[2024-02-02] MEDS: amLODIPine BESYLATE 10 MG TABLET PO (09:11)
[2024-02-02] MEDS: EZETIMIBE 10 MG TABLET PO (09:11)
[2024-02-02] MEDS: CHOLECALCIFEROL 1,000 UNITS TABLET 1000 UNITS PO (09:11)
[2024-02-02] MEDS: SULFAMETHOXAZOLE/TRIMETHOPRIM 800/160 MG DS TABLET 1 TAB PO ×2 (09:11→22:02)
[2024-02-02] MEDS: cloNIDine HCL 0.1 MG TABLET 0.3 MG PO ×2 (09:11→22:02)
--- NOTE | 2024-02-02 11:14 | PC.NURSE ---
Patient resting in bed. BUE swelling. Patient able to communicate with short sentences/answers. Pill taken whole with honey thick fluid. Patient reports no sensation on the R side.
[2024-02-02 11:27] LABS: Glucose Point of Care 100 mg/dl (65-105)
[2024-02-02] MEDS: SODIUM CHLORIDE 0.9% IV 1,000 ML 75 ML IV CONT (12:33)
--- NOTE | 2024-02-02 14:24 | PM.IMPN ---
Progress Note: A&P Assessment and Plan (1) Sepsis: Code(s): A41.9 - Sepsis, unspecified organism Status: Acute (2) Urinary tract infection: Code(s): N39.0 - Urinary tract infection, site not specified Status: Acute (3) COVID-19: Code(s): U07.1 - COVID-19 Status: Acute (4) Abdominal aortic aneurysm: Code(s): I71.40 - Abdominal aortic aneurysm, without rupture, unspecified Status: Acute (5) Electrolyte abnormality: Code(s): E87.8 - Other disorders of electrolyte and fluid balance, not elsewhere classified Status: Acute (6) Occlusion of left iliac artery: Code(s): I74.5 - Embolism and thrombosis of iliac artery Status: Acute (7) Altered mental status: Code(s): R41.82 - Altered mental status, unspecified Status: Acute (8) Insulin dependent type 2 diabetes mellitus: Code(s): E11.9 - Type 2 diabetes mellitus without complications; Z79.4 - skilled nursing (current) use of insulin Status: Acute (9) Hypertension: Code(s): I10 - Essential (primary) hypertension Status: Acute (10) Chronic kidney disease, stage 4 (severe): Code(s): N18.4 - Chronic kidney disease, stage 4 (severe) Status: Acute (11) Dyslipidemia: Code(s): E78.5 - Hyperlipidemia, unspecified Status: Acute Plan Patient is positive for C-diff and was started fidaxomicin and rectal tube was place for fecal management, will stop fidaxomicin due to cost in anticipation for transfer to rehab and start patient of oral vancomycin, patient is also positive for COVID and he clinically stable not requiring any oxygen patient is started on remdesivir, does not need dexamethasone, patient is unable to provide detailed review of symptoms or history, patient is clinically stable, patient Scr is rising most likely 2/2 to dehydration due to diarrhea and poor PO inatake, started on IVF 125cc per hour, but lungs congested will reduce to 75cc/hr, will do cxr and monitor, will continue to monitor and further recommendation to follow. Plan is to have PT OT evaluate the patient and may possibly transfer the patient back to rehab. Subjective Date/time seen: 02/02/24 14:24 Interval history: Patient was evaluated the bedside. Pending transfer to rehab. Review of Systems Review of Systems: Unable to obtain accurately given his clinical condition. Exam Narrative: Patient is comfortable, NAD HEENT: eyes are clear and none icteric LUNGS: Bilateral fair air entry with minimal rales HEART: RR S1S2 ABD: BS+, Soft and nontender Lower extremities: no edema SKIN: nonjaundiced Neuro: grossly intact. Objective Data Vital Signs Vital Signs: Vital Signs - 24 hr 02/01/24 16:00 02/01/24 19:58 02/01/24 20:00 Temperature 96.7 F L Pulse Rate 84 72 72 Respiratory Rate 18 18 Blood Pressure 154/60 H Pulse Oximetry 100 100 Oxygen Delivery Room Air 02/01/24 20:00 02/01/24 21:50 02/02/24 00:00 Temperature Pulse Rate 65 65 58 L Respiratory Rate Blood Pressure Pulse Oximetry Oxygen Delivery 02/02/24 04:00 02/02/24 05:29 02/02/24 09:10 Temperature 96.7 F L Pulse Rate 62 63 78 Respiratory Rate 18 Blood Pressure 136/67 Pulse Oximetry 100 Oxygen Delivery Intake/Output Intake/Output: Intake & Output 01/30/24 01/31/24 02/01/24 02/02/24 23:59 23:59 23:59 23:59 Intake Total 1700 3992.9 3990 1600 Output Total 1700 1200 1150 650 Balance 0 2792.9 2840 950 Meds/Results Medications: Active Medications Generic Name Dose Route Start Last Admin Trade Name Freq PRN Reason Stop Dose Admin Amlodipine Besylate 10 mg 01/29/24 09:00 02/02/24 09:11 Amlodipine Besylate 10 Mg Tablet PO 10 mg DAILY RAUDEL Administration Aspirin 81 mg 01/29/24 09:00 02/02/24 09:10 Aspirin 81 Mg Chewable Tablet PO 81 mg DAILY RAUDEL Administration Atorvastatin Calcium 40 mg 01/29/24 21:00
[2024-02-02 15:22] LABS: Hematocrit 26.2 % (42.0-52.0); Mean Corpuscular HGB Conc 30.5 g/dl (32-36); Mean Corpuscular Volume 101.6 fl (80-100); Platelet Count Result 236 k/mm3 (150-375); Red Blood Count 2.58 M/mm3 (4.6-6.20); Red Cell Distribution Width 13.2 % (11.5-14.5); White Blood Count 9.7 K/mm3 (4.5-10.0)
[2024-02-02 16:26] LABS: Glucose Point of Care 104 mg/dl (65-105)
[2024-02-02 20:32] LABS: Glucose Point of Care 109 mg/dl (65-105)
[2024-02-02] MEDS: INSULIN GLARGINE (*BKC) 100 UNITS/ML 20 UNITS SUB-Q (22:00)
[2024-02-02] MEDS: ATORVASTATIN 40 MG TABLET PO (22:01)
[2024-02-02] MEDS: DOXAZOSIN MESYLATE 4 MG TABLET PO (22:02)
[2024-02-03] VITALS (11 sets, daily range): BP systolic 130–151; BP diastolic 48–55; PULSE 61–77; RESP 12–20; TEMP 36.1–36.5; O2SAT 100; BMI 10.0
[2024-02-03] MEDS: SODIUM CHLORIDE 0.9% IV 1,000 ML 75 ML IV CONT ×2 (02:01→16:52)
[2024-02-03] MEDS: VANCOMYCIN HCL 125 MG ORAL CAPSULE PO ×3 (05:54→17:01)
[2024-02-03 06:16] LABS: Hematocrit 23.1 % (42.0-52.0); Mean Corpuscular HGB Conc 30.3 g/dl (32-36); Mean Corpuscular Volume 99.1 fl (80-100); Mean Platelet Volume 10.1 fl (7.4-10.4); Platelet Count Result 281 k/mm3 (150-375); Red Blood Count 2.33 M/mm3 (4.6-6.20); Red Cell Distribution Width 13.4 % (11.5-14.5); White Blood Count 8.2 K/mm3 (4.5-10.0)
[2024-02-03 06:26] LABS: Anion Gap 6 mmol/L (4-12); Blood Urea Nitrogen 35 mg/dL (9-20); Calcium 7.8 mg/dL (8.4-10.2); Carbon Dioxide 11 mmol/L (22-30); Chloride 121 mmol/L (98-107); Estimated CRCL calculation 33 ml/min; Estimated Glomerular Filt Rate 32; Glucose 69 mg/dL (65-110); Magnesium 2.3 mg/dL (1.6-2.3); Potassium 3.9 mmol/L (3.4-5.0); Sodium 138 mmol/L (137-145)
[2024-02-03 07:53] LABS: Glucose Point of Care 66 mg/dl (65-105)
[2024-02-03] MEDS: FERROUS SULFATE 325 MG TABLET DR PO ×4 (08:16→21:05)
[2024-02-03] MEDS: PREGABALIN (*CRX) 25 MG CAPSULE PO ×2 (08:16→16:53)
[2024-02-03] MEDS: SULFAMETHOXAZOLE/TRIMETHOPRIM 800/160 MG DS TABLET 1 TAB PO ×2 (08:16→21:05)
[2024-02-03] MEDS: amLODIPine BESYLATE 10 MG TABLET PO (08:16)
[2024-02-03] MEDS: CHOLECALCIFEROL 1,000 UNITS TABLET 1000 UNITS PO (08:16)
[2024-02-03] MEDS: cloNIDine HCL 0.1 MG TABLET 0.3 MG PO ×2 (08:16→21:05)
[2024-02-03] MEDS: carvediloL 6.25 MG TABLET PO ×2 (08:16→21:05)
[2024-02-03] MEDS: EZETIMIBE 10 MG TABLET PO (08:16)
[2024-02-03] MEDS: TICAGRELOR 90 MG TABLET PO ×2 (08:16→21:05)
[2024-02-03] MEDS: ASPIRIN 81 MG CHEWABLE TABLET PO (08:16)
[2024-02-03] MEDS: calcitrioL 0.25 MCG CAPSULE PO (08:18)
[2024-02-03 08:55] LABS: Glucose Point of Care 102 mg/dl (65-105)
--- NOTE | 2024-02-03 10:04 | PCNFU ---
Nutrition Follow-Up Complete: Inadequate oral intake related to loss of appetite as evidenced by 0% intakes Goal:Improve PO intake to at least 50% meals and supplements Pt is not meeting goal, continue with same goal. Pt current nutrition is Pureed level 4, diabetic diet, moderately thick liquids level 3. Glucerna shakes BID, HAM BID Nutrition recommendation: continue with current plan of care, encourage po intake of meals and supplements Last recorded weight is 88.5 kg. Bowel Motility: +BM 02/02 Labs Reviewed: Hgr:7.0, HCT:23.1, GFR:32, BUN:35, Cr:2.1 Meds Noted: insulin Skin: stage I to hip Additional Notes: Pt continues on the same pureed diet, moderately thick liquids, intake remains poor at 5-25% of meals. Supplements in place. Encourage po intake. Pt awaiting transfer to rehab. Monitoring intakes, weights, labs, supplement tolerance, plan of care Follow up in 3 days
[2024-02-03 11:46] LABS: Glucose Point of Care 131 mg/dl (65-105)
--- NOTE | 2024-02-03 16:06 | PM.IMPN ---
Progress Note: A&P Assessment and Plan (1) Sepsis: Code(s): A41.9 - Sepsis, unspecified organism Status: Acute (2) Urinary tract infection: Code(s): N39.0 - Urinary tract infection, site not specified Status: Acute (3) COVID-19: Code(s): U07.1 - COVID-19 Status: Acute (4) Abdominal aortic aneurysm: Code(s): I71.40 - Abdominal aortic aneurysm, without rupture, unspecified Status: Acute (5) Electrolyte abnormality: Code(s): E87.8 - Other disorders of electrolyte and fluid balance, not elsewhere classified Status: Acute (6) Occlusion of left iliac artery: Code(s): I74.5 - Embolism and thrombosis of iliac artery Status: Acute (7) Altered mental status: Code(s): R41.82 - Altered mental status, unspecified Status: Acute (8) Insulin dependent type 2 diabetes mellitus: Code(s): E11.9 - Type 2 diabetes mellitus without complications; Z79.4 - correction (current) use of insulin Status: Acute (9) Hypertension: Code(s): I10 - Essential (primary) hypertension Status: Acute (10) Chronic kidney disease, stage 4 (severe): Code(s): N18.4 - Chronic kidney disease, stage 4 (severe) Status: Acute (11) Dyslipidemia: Code(s): E78.5 - Hyperlipidemia, unspecified Status: Acute Plan Patient is positive for C-diff and was started fidaxomicin and rectal tube was place for fecal management, will stop fidaxomicin due to cost in anticipation for transfer to rehab and start patient of oral vancomycin, patient is also positive for COVID and he clinically stable not requiring any oxygen patient is started on remdesivir, does not need dexamethasone, patient is unable to provide detailed review of symptoms or history, patient is clinically stable, patient Scr is rising most likely 2/2 to dehydration due to diarrhea and poor PO inatake, started on IVF 125cc per hour, but lungs congested will reduce to 75cc/hr, will do cxr and monitor, will continue to monitor and further recommendation to follow. Patient is currently on oral vancomycin for C.Diff and TMP -SMX until 02/04 for UTI. Patient renal function has been stable. Plan is to have PT OT evaluate the patient and may possibly transfer the patient back to rehab. Subjective Date/time seen: 02/03/24 16:06 Interval history: Performed appear to peer evaluation with insurance company but they want detailed evaluation of PT and OT. Case coordination will fax it . Pending rehab transfer Review of Systems Review of Systems: Unable to obtain accurately given his clinical condition. Exam Narrative: Patient is comfortable, NAD HEENT: eyes are clear and none icteric LUNGS: Bilateral fair air entry with minimal rales HEART: RR S1S2 ABD: BS+, Soft and nontender Lower extremities: no edema SKIN: nonjaundiced Neuro: grossly intact. Objective Data Vital Signs Vital Signs: Vital Signs - 24 hr 02/02/24 20:00 02/02/24 20:00 02/02/24 21:29 Temperature 97.5 F L Pulse Rate 74 81 77 Respiratory Rate 18 16 Blood Pressure 136/49 L Pulse Oximetry 100 100 Oxygen Delivery Room Air 02/02/24 22:02 02/03/24 00:00 02/03/24 04:00 Temperature Pulse Rate 77 66 63 Respiratory Rate Blood Pressure Pulse Oximetry Oxygen Delivery 02/03/24 06:00 02/03/24 08:16 02/03/24 08:00 Temperature 96.9 F L Pulse Rate 70 74 77 Respiratory Rate 12 Blood Pressure 151/48 H Pulse Oximetry 100 Oxygen Delivery 02/03/24 08:15 02/03/24 12:00 02/03/24 14:00 Temperature 97.7 F Pulse Rate 61 68 Respiratory Rate 20 Blood Pressure 130/54 L Pulse Oximetry 100 Oxygen Delivery Room Air Intake/Output Intake/Output: Intake & Output 01/31/24 02/01/24 02/02/24 02/03/24 23:59 23:59 23:59 23:59 Intake Total 3992.9 4240 2020 1170 Output Total 1200 1150 1450 750 Balance 2792.9 3090 570 420 Meds/Results Medic
[2024-02-03 16:43] LABS: Glucose Point of Care 115 mg/dl (65-105)
[2024-02-03 19:28] LABS: Glucose Point of Care 120 mg/dl (65-105)
[2024-02-03] MEDS: DOXAZOSIN MESYLATE 4 MG TABLET PO (21:04)
[2024-02-03] MEDS: ATORVASTATIN 40 MG TABLET PO (21:05)
[2024-02-03] MEDS: INSULIN GLARGINE (*BKC) 100 UNITS/ML 20 UNITS SUB-Q (21:06)
[2024-02-04] VITALS: PULSE 66
[2024-02-04] MEDS: VANCOMYCIN HCL 125 MG ORAL CAPSULE PO ×3 (00:46→12:11)
[2024-02-04 04:00] VITALS: PULSE 69
[2024-02-04 05:51] VITALS: BP 153/61; PULSE 69; RESP 14; TEMP 36.2; O2SAT 97
[2024-02-04] MEDS: SODIUM CHLORIDE 0.9% IV 1,000 ML 75 ML IV CONT (06:07)
[2024-02-04 07:53] LABS: Glucose Point of Care 44 mg/dl (65-105)
[2024-02-04 08:03] LABS: Hematocrit 28.1 % (42.0-52.0); Hemoglobin 8.5 g/dL (14.0-18.0); Mean Corpuscular HGB Conc 30.2 g/dl (32-36); Mean Corpuscular Volume 102.6 fl (80-100); Mean Platelet Volume 10.4 fl (7.4-10.4); Platelet Count Result 222 k/mm3 (150-375); Red Blood Count 2.74 M/mm3 (4.6-6.20); Red Cell Distribution Width 13.6 % (11.5-14.5); White Blood Count 8.7 K/mm3 (4.5-10.0)
[2024-02-04 08:16] LABS: Alanine Aminotransferase 22 U/L (6-50); Albumin Level 2.6 g/dL (3.5-5.1); Alkaline Phosphatase 101 U/L (38-126); Anion Gap 10 mmol/L (4-12); Aspartate Amino Transferase 37 U/L (17-59); Bilirubin,Total 0.4 mg/dL (0.2-1.3); Blood Urea Nitrogen 33 mg/dL (9-20); Carbon Dioxide 8 mmol/L (22-30); Chloride 123 mmol/L (98-107); Estimated CRCL calculation 35 ml/min; Estimated Glomerular Filt Rate 33; Glucose 47 mg/dL (65-110); Magnesium 2.4 mg/dL (1.6-2.3); Potassium 4.3 mmol/L (3.4-5.0); Sodium 141 mmol/L (137-145)
[2024-02-04 08:25] VITALS: PULSE 72
[2024-02-04] MEDS: EZETIMIBE 10 MG TABLET PO (08:25)
[2024-02-04] MEDS: amLODIPine BESYLATE 10 MG TABLET PO (08:25)
[2024-02-04] MEDS: PREGABALIN (*CRX) 25 MG CAPSULE PO (08:25)
[2024-02-04] MEDS: cloNIDine HCL 0.1 MG TABLET 0.3 MG PO (08:25)
[2024-02-04] MEDS: FERROUS SULFATE 325 MG TABLET DR PO ×2 (08:25→12:11)
[2024-02-04] MEDS: carvediloL 6.25 MG TABLET PO (08:25)
[2024-02-04] MEDS: CHOLECALCIFEROL 1,000 UNITS TABLET 1000 UNITS PO (08:25)
[2024-02-04] MEDS: SULFAMETHOXAZOLE/TRIMETHOPRIM 800/160 MG DS TABLET 1 TAB PO (08:25)
[2024-02-04] MEDS: ASPIRIN 81 MG CHEWABLE TABLET PO (08:25)
[2024-02-04] MEDS: TICAGRELOR 90 MG TABLET PO (08:26)
[2024-02-04 08:43] LABS: Glucose Point of Care 85 mg/dl (65-105)
[2024-02-04 10:24] LABS: Folic Acid 6.5 ng/mL (2.76->20)
[2024-02-04 11:41] LABS: Glucose Point of Care 132 mg/dl (65-105)
[2024-02-04 12:00] VITALS: PULSE 71
--- NOTE | 2024-02-04 13:14 | PM.DS ---
DS: Admitting Diagnosis Discharge Date 02/04/2024 Admitting Diagnosis lethargy and confusion DS: Discharge Diagnosis Discharge Diagnosis (1) COVID-19: Code(s): U07.1 - COVID-19 Status: Acute (2) Sepsis: Code(s): A41.9 - Sepsis, unspecified organism Status: Acute (3) Urinary tract infection: Code(s): N39.0 - Urinary tract infection, site not specified Status: Acute DS: Summary Hospital Course Hospital Course: This is a 68-year-old male with multiple medical problems including of recent stroke with right-sided deficits, peripheral vascular disease, hypertension, dyslipidemia, chronic kidney disease stage 4, iron deficiency anemia, and insulin-dependent type 2 diabetes mellitus who presented to the emergency department via EMS from [facility] for evaluation of lethargy and confusion. He is not able to provide an accurate history given his confusion and a majority of the following is obtained via a review of his EMR as well as information provided by his family members. He is currently at [facility] for rehab after suffering a stroke. This morning the speech therapist noted that he was much slower to respond and did not participate as usual. His last known normal was before going to bed last night. No other information was relayed to us from the transferring facility. At the time my evaluation the patient is alert to self and he is aware that he is at a hospital. Overall he does not feel well but he is unable to provide specifics. He has had uncontrollable diarrhea which the patient states is a newer development. He denies headache, sinus congestion, sore throat, chest pain, shortness of breath, abdominal pain, nausea, vomiting, and dysuria. He does not believe he the on antibiotics recently and denies history of C diff. There have been no reports of falls or documented fever. In the ED: Temperature was 101.7? on arrival. Blood pressures have been stable. He has been tachypneic in the mid 30s. Labs are significant for WBC count of 10.2, hemoglobin 11.1, sodium 128, potassium 5.1, carbon dioxide 16, anion gap 13, BUN 33, creatinine 2.60, glucose 226, lactic acid 1.5. Urinalysis was positive for 3+ protein, 3+ blood, 1+ bilirubin, 2+ leukocyte esterase, greater than 100 RBC and WBC, and 1+ bacteria. He tested positive for SARS-CoV-2 by PCR. CTA of the head and neck showed no aneurysm or significant intracranial arterial stenosis, 0% stenosis of the proximal right internal carotid artery, and patent stents in the left internal carotid artery and common carotid artery. CT of the abdomen pelvis showed by basilar atelectasis, minimal pericardial effusion, fluid content in the large bowel which may indicate diarrhea, abdominal aortic aneurysm with occlusion of the common left iliac artery and severe atherosclerotic changes of both iliac artery with narrowing. The patient's leg is warm and well-perfused and the ED physician spoke with vascular surgery at [facility] who indicated that this was a chronic finding. He was given a normal saline bolus and started on cefepime and vancomycin is being admitted in this setting for further treatment. Patient was initially treated with initially for c diff colitis, then switched to PO vancomycin. patient discharged on 9 more days of Vancomycin to complete 10 days. Also managed on for Covid 19 however he was not on oxygen and was treated with Remdesivir only as he was not on oxygen. Also managed for UTI urine culture positive for Enterobacter cloacae complex sensitive to Bactrim, to complete 7 days tomorrow. discharged on one more day. CXR showed Left lung opacity for which i have discharged patient on 5 more days of Cefdinir and Azithromycin. For left common iliac artery occlusion per Admission note vascular surgery consulted at [facility] who staed that occlusion is chronic and no acte intervention at the time. Oral intake improving gradually, flo held u
[2024-02-04] MEDS: INFLUENZA VACCINE HIGH DOSE (>64) 180 MCG/0.5 ML SYRINGE IM (14:20)
== END 2024-02-04 15:28 | DRG 871 ==
LOC: ANHED 18:50 → ANH3MEDSUR 19:32
PROVIDERS: Emergency Medicine; General Practice; Physician Assistant; Admitting Provider Family Medicine; Emergency Provider Student in an Organized Health Care Education/Training Program; Visit Provider Internal Medicine
DX: A41.9 Sepsis, unspecified organism (principal); U07.1 COVID-19; N39.0 Urinary tract infection, site not specified; A04.72 Enterocolitis due to Clostridium difficile, not specified as recurrent; N18.4 Chronic kidney disease, stage 4 (severe); I74.5 Embolism and thrombosis of iliac artery; I69.351 Hemiplegia and hemiparesis following cerebral infarction affecting right dominant side; I12.9 Hypertensive chronic kidney disease with stage 1 through stage 4 chronic kidney disease, or unspecified chronic kidney disease; E78.5 Hyperlipidemia, unspecified; I69.322 Dysarthria following cerebral infarction; Z23 Encounter for immunization; Z95.820 Peripheral vascular angioplasty status with implants and grafts
CPT/HCPCS: 36415; 70496; 70498; 71045; 74177; 80048; 80053; 80076; 81001; 82140; 82274; 82607; 82728; 82746; 82803; 82948; 83036; 83540; 83550; 83605; 83615; 83735; 84145; 84443; 85025; 85027; 85610; 85730; 86140; 87040; 87045; 87077; 87086; 87088; 87186; 87425; 87427; 87449; 87493; 87636; 87641; 87798; 90471; 90662; 93005; 96361; 96365; 96366; 96367; 97110; 97112; 97163; 97165; 97530; 97535; 99291; A9270; G0008; J0248; J0692; J0696; J1815; J1836; J3370; J7030; Q9967